=== PATIENT | female | born 1985 | race Caucasian/White ===

== ENCOUNTER 2018-05-29 21:57 | Inpatient (IN) | payer BC, OTHER ==
[2018-05-29 22:47] VITALS: BMI 38.9
[2018-05-29] MEDS ORDERED: Betamethasone Soluspan 30 mg/5mL Inj Susp IM ONE (22:47)
[2018-05-29] MEDS ORDERED: Lactated Ringer's 500 ML IV SCH (23:00)
[2018-05-29] MEDS ORDERED: Lactated Ringer's 1,000 ML IV SCH (23:00)
[2018-05-29 23:27] LABS: BASO % 0.2 % (0.0-2.0); EOS # 0.1 K/uL (0.0-0.7); EOS % 1.2 % (0.0-4.0); LYMPH # 1.4 K/uL (1.0-4.3); LYMPH % 15.7 % (20.0-40.0); MEAN CORPUSCULAR HEMOGLOBIN 28.2 pg (27.0-31.0); MEAN PLATELET VOLUME 8.6 fl (7.2-11.7); MONO # 0.7 K/uL (0.0-0.8); MONO % 8.2 % (0.0-10.0); NEUT # 6.7 K/uL (1.8-7.0); NEUT % 74.7 % (50.0-75.0); RBC 3.92 Mil/uL (3.80-5.20); RED CELL DISTRIBUTION WIDTH 15.6 % (11.5-14.5)
--- NOTE | 2018-05-30 07:48 | OBHP ---
Datetime: 05/30/2018 07:15 FHR - Baseline A Provider: 150 Contraction Comments Provider: Q 3-5 mins Vital Signs Provider: Reviewed; Within Normal Limits NICHD Variability Prov Fetus A: Moderate 6-25bpm NICHD Decel Fetus A IP Provider: None Dilatation, Provider: closed Effacement, Provider: 50 Station, Provider: -3 Datetime: 05/29/2018 22:42 IP Adm Impression: , intrauterine IP Admit Plan: Observation/Evaluation Admit Comment, IP Provider: 33 y/o , 34 wks with presents to [facility] with vaginal bleeding. patient noticed 2 episodes of bright red vaginal bleeding today. Denies LOF or feeling CTx. Endorses good fe giles movements. Denies fever, chills, abdominal pain, dysuria, N/V/D, headache. : Dr. Mancilla OBHx: 2 C-sections Full term PMHx: Hypothyroidism PSHx: 2 Previous C Section Allergies: NKDA Medications: Synthroid, PNVs F/H: Noncontributory SOcial: Denies ETOH/smoking/drugs PE: Gen: NAD Chest: RRR, S1S2 Lungs: CTAB ABdomen: Soft, Gravid, NT, BS+ SSE: + VB (dime sized) with mucus discharge Ext: No pedal edema or calf tenderness A/P: 33 y/o , 34 wks with presents to [facility] with vaginal bleeding. - EFM and toco monitoring - LR 500 bolus followed by 150 ml/hr - CBC, T_S - Betamethazone 12 mg IM - Monitor vitals Case discussed with OB attending Mark Faye, PGY1 Addendum by Dr. Norman: I have evaluated the patient independently and I agree with the above. Rolanda ent is a @ 35.6 wks with bright red spotting. Patient has a history of 2 previous , no other antepartum risk factors. Patient denies pain, no pressure, no leaking, no dysuria, no fever, no abdominal pain, no N/V/D. Patient on speculum had about quarter size of bleeding noted, closed on digital exam. Patient comfortable, FHR = 125 mod daniela, +accels, no decels. Contractions about q [address] Mancilla contacted and uptdated about patient status. IVF started, Type/screen and CBC drawn and Betamethasone 12mg IM given. Will continue to observe for worsening maternal or status Pelvic Type - PN: Not Done Extremities - PN: Normal Abdomen - PN: Normal Back - PN: Normal Breast - PN: Normal Lungs - PN: Normal Heart - PN: Normal Thyroid - PN: Normal Neurologic - PN: Normal HEENT - PN: Normal General - PN: Normal IP Chief Complaint: Vaginal bleeding NICHD Accel Fetus A IP Provider: [id number] FHR Category Provider Fetus A: Category I Genitourinary Exam: Abnormal DTRs - PN: Not Done
--- NOTE | 2018-05-30 07:57 | OBPN ---
Datetime: 05/30/2018 07:15 IP Procedures: Sterile Vag Exam Contraction Comments Provider: Q 3-5 mins FHR - Baseline A Provider: 150 IP Progress Note Comment: Called by nurse to evaluate patient. Patient overnight had very small scan t red blood that was noted, otherwise patient is asymptomatic. Patient denies fever, abdominal pain, no pelvic pressure, no leaking, resting comfortably. WBC = 9, Hgb = 11, FHR = 150 mod daniela, +accels, o ccasional small variables noted overnight. VE = closed/50/-3. Patient not progressing in labor, no si gns of chorio. Attending was notified by RN of patient status, to be evaluating patient this AM. Cont inue IVF, NPO and CEFM and TOCO Vital Signs Provider: Reviewed; Within Normal Limits NICHD Accel Fetus A IP Provider: [id number] NICHD Variability Prov Fetus A: Moderate 6-25bpm Dilatation, Provider: closed Effacement, Provider: 50 Station, Provider: -3 NICHD Decel Fetus A IP Provider: None Datetime: 05/29/2018 22:42 FHR Category Provider Fetus A: Category I
[2018-05-30] MEDS ORDERED: Lactated Ringer's 1,000 ML IV ONE (09:26)
[2018-05-30] MEDS ORDERED: cefOXitin 2 GM in Sodium Chloride 0.9% 100 ML IVPB ONE (09:26)
[2018-05-30] MEDS ORDERED: Morphine 1 mg/ml preservative-free Inj(Duramorph) ONE (09:39)
[2018-05-30] MEDS ORDERED: EPINEPHrine 1 mg/ml (1:1000) Inj ONE (09:39)
[2018-05-30] MEDS ORDERED: ePHEDrine 50 mg/ml Inj ONE (09:39)
[2018-05-30] MEDS ORDERED: Oxycodone/Acetaminophen 5/325 mg Tab PO PRN ×3 (11:56→15:30)
[2018-05-30] MEDS ORDERED: OXYTOCIN/0.9 % NS 20 UNIT/1,000 ML BAG IV ONE ×2 (11:56→15:30)
[2018-05-30] MEDS ORDERED: DiphenhydrAMINE 50 mg/ml Inj IVP PRN ×2 (13:33→15:30)
[2018-05-31 06:28] LABS: HEMOGLOBIN 9.5 g/dL (12.0-16.0); MEAN CELL VOLUME 85.2 fl (81.0-99.0); MEAN CORPUSCULAR HEMOGLOBIN 27.8 pg (27.0-31.0); MEAN CORPUSCULAR HGB CONC 32.6 g/dL (33.0-37.0); RBC 3.41 Mil/uL (3.80-5.20); RED CELL DISTRIBUTION WIDTH 15.5 % (11.5-14.5); WHITE BLOOD COUNT 12.8 K/uL (4.8-10.8)
[2018-05-31] MEDS ORDERED: Multivitamin With Minerals Tab PO SCH (09:00)
[2018-05-31] MEDS: Multivitamin With Minerals Tab PO SCH (09:01)
--- NOTE | 2018-05-31 18:24 | OBPPN ---
Datetime: 05/31/2018 18:21 PP Pain Prov: Within normal limits PP Nausea Prov: Denies PP Flatus Prov: Yes PP BM Prov: No PP Breasts Prov: Normal PP Heart Prov: Normal PP Lungs Prov: Normal PP Abdomen/Uterus Prov: Normal PP Lochia Prov: Normal PP Vulva/Perineum Prov: Normal PP CVA Tenderness Prov: Normal PP Extremities Prov: Normal PP C/S Incision Prov: Normal PP Progress Prov: Normal PP Impression Prov: Normal progression PP Plan Prov: Continue present management PP Progress Note Prov: stable pod2 continue present care IP PP Procedures: None Vital Signs Provider PP: Reviewed; Within Normal Limits
[2018-06-01] MEDS: Oxycodone/Acetaminophen 5/325 mg Tab PO PRN ×2 (02:43→07:53)
[2018-06-01] MEDS: Multivitamin With Minerals Tab PO SCH (07:59)
--- NOTE | 2018-06-01 17:14 | OBPPN ---
Datetime: 06/01/2018 17:12 PP Pain Prov: Within normal limits PP Nausea Prov: Denies PP Flatus Prov: Yes PP BM Prov: Yes PP Breasts Prov: Normal PP Heart Prov: Normal PP Lungs Prov: Normal PP Abdomen/Uterus Prov: Normal PP Lochia Prov: Normal PP Vulva/Perineum Prov: Normal PP CVA Tenderness Prov: Normal PP Extremities Prov: Normal PP C/S Incision Prov: Normal PP Progress Prov: Normal PP Impression Prov: Normal progression PP Plan Prov: Continue present management IP PP Procedures: None Vital Signs Provider PP: Reviewed; Within Normal Limits
--- NOTE | 2018-06-01 20:46 | OP ---
PROCEDURE DATE: 05/30/2018 PREOPERATIVE DIAGNOSIS: Term , previous section x2 in labor. POSTOPERATIVE DIAGNOSIS: Term , previous section x2 in labor. SURGEON: Faraz Michaels MD. FIREARMS INSPECTOR: Ray Amaya MD. ANESTHESIOLOGIST: Glory Clark MD. ANESTHESIA: Spinal. PROCEDURE: Repeat low transverse section. FINDINGS: Term size uterus. Live baby girl. Apgars 9 and 9. Clear fluid. Cord with one nuchal cord. Cord with 3 vessels. Tubes and ovaries within normal limits. Dr. Amaya assisted in the preparation of the surgery. After this was done, a Pfannenstiel skin incision was made and taken down to the fascia in layers. The fascia was incised and extended bilaterally. Dr. Amaya was doing his side and I was doing my side. Following this, the fascia from the muscle by sharp dissection and the peritoneum was grasped, incised and extended vertically. Upon entering the abdominopelvic cavity, the pericolic gutters were packed with wet laps, pushing the bowel away from the operative field. Bladder flap was established, after which a low transverse incision was then made in the uterus extended bilaterally and curving upwards. Baby was removed without any complications and given to the side sawyer who resuscitated. Following this, the placenta was removed intact. Uterus was exteriorized, cleaned and closed in 2 layers using 1 Vicryl. The wet laps were removed from paracolic gutters. The pelvic cavity irrigated until clean. Uterus was repositioned. After this was done, the peritoneum was grasped and closed with 1 Vicryl. Muscles were reapproximated with 1 Vicryl. Fascia was closed with 1 Vicryl running interlocking stitch starting at each end and finishing in the midline. Dr. Amaya was doing his half and I was dong my half. Subcutaneous layer was closed with 2-0 plain and the skin was closed with sanchez. Estimated blood loss was about 800 mL. The patient tolerated the procedure well and was in satisfactory condition on the way to the recovery room. Dr. Amaya was present from beginning of the surgery to the end of the surgery. Faraz Michaels MD [facility] # [id number]
[2018-06-01] MEDS ORDERED: Oxycodone/Acetaminophen 5/325 mg Tab PO PRN ×2 (22:47→22:48)
--- NOTE | 2018-06-02 08:17 | OBDCSUM ---
Datetime: 06/02/2018 08:14 Discharged to, Provider: Home Follow up at, Provider: Dr Mancilla Disch Instr Activity: Normal activity; Bedrest; May be up for meals; May Shower Disch Instr Diet: Regular Discharge Instructions, Provider: Specific instructions as noted Discharge Diagnosis, Provider: Term Delivered Discharge Time: 06/02/2018 08:14 Follow up in weeks, Provider: in office Disch Referrals: None Disch Activity Restrictions: No exercising; No lifting; No driving; Minimize walking; Minimize stair -climbing; No sexual activity; Nothing in vagina - [place], tampons, douche Discharge Comment, Provider: stew home today rto carol call office if any problems Contraception after Delivery: Undecided
[2018-06-02] MEDS: Multivitamin With Minerals Tab PO SCH (08:49)
[2018-06-02] MEDS ORDERED: Influenza Vaccine (5 YR UP)/PF 60 MCG/0.5 ML SYR IM ONE (09:00)
[2018-06-02] MEDS ORDERED: Influenza Vaccine 60 mcg/0.5 mL SYR (4YR UP) IM ONE (09:00)
[2018-06-03 01:29] VITALS: BP 126/81; PULSE 103; RESP 20; TEMP 98.1; O2SAT 98
== END 2018-06-02 13:26 | disposition home or self-care (01) | DRG 788 ==
LOC: H.EROB2 21:57 → H.L&D 05-30 00:46 → OBSVTOIN 05-30 09:05 → H.OB/GYN 05-30 15:25
PROVIDERS: ADMIT Specialist; ATTEND Specialist
PROC: 10D00Z1 Extraction of Products of Conception, Low, Open Approach (ICD-10-PCS; principal; 2018-05-30)
PROC: 4A1HXCZ Monitoring of Products of Conception, Cardiac Rate, External Approach (ICD-10-PCS; 2018-05-30)
DX: O34.211 Maternal care for low transverse scar from previous cesarean delivery (principal); N85.8 Other specified noninflammatory disorders of uterus; O69.81X0 Labor and delivery complicated by cord around neck, without compression, not applicable or unspecified; Z37.0 Single live birth; Z3A.37 37 weeks gestation of pregnancy